=== PATIENT | male | born 1990 | race Caucasian/White ===

== ENCOUNTER 2018-03-05 16:14 | Emergency (ER) | payer OTHER ==
[~2018-03-05] VITALS: Ht 172.7 cm; Wt 156.0 kg
[2018-03-05 16:19] VITALS: BP 170/95; Ht 172.7 cm; Wt 156.0 kg
== END 2018-03-05 19:01 | disposition home or self-care (01) ==
LOC: ED 16:14
DX: S61.012A Laceration without foreign body of left thumb without damage to nail, initial encounter (principal); I10 Essential (primary) hypertension; Z88.0 Allergy status to penicillin; W26.0XXA Contact with knife, initial encounter; Y93.89 Activity, other specified; Y92.89 Other specified places as the place of occurrence of the external cause; Y99.8 Other external cause status
CPT/HCPCS: 90715; J2001